=== PATIENT | male | born 1980 | race Hispanic/Latino ===

== ENCOUNTER 2019-03-09 19:39 | Emergency (ER) | payer SELFPAY ==
[2019-03-09] MEDS ORDERED: Adacel (T-DAP) 0.5 ML SYRINGE ONE (20:29)
[2019-03-09] MEDS ORDERED: Lidocaine 1% (PF) 30 ML VIAL ONE (21:02)
[2019-03-09] MEDS ORDERED: Lidocaine 1% PF 5 ML VIAL ONE (21:03)
[2019-03-09] MEDS ORDERED: Bacitracin 1 PK ONE (21:29)
== END 2019-03-09 21:35 | disposition home or self-care (01) ==
LOC: ERS 19:39
DX: S71.112A Laceration without foreign body, left thigh, initial encounter (principal); E03.9 Hypothyroidism, unspecified; F32.9 Major depressive disorder, single episode, unspecified; Z79.899 Other long term (current) drug therapy; W26.0XXA Contact with knife, initial encounter
CPT/HCPCS: 12001; 90471; 90715; J2001

== ENCOUNTER 2019-03-23 11:19 | Emergency (ER) | payer OTHER | END 2019-03-23 12:03 | disposition home or self-care (01) | LOC: ERS 11:19 | DX: S71.112D Laceration without foreign body, left thigh, subsequent encounter (principal); E03.9 Hypothyroidism, unspecified; F32.9 Major depressive disorder, single episode, unspecified; Z79.899 Other long term (current) drug therapy ==

== ENCOUNTER 2020-11-24 21:20 | Emergency (ER) | payer OTHER ==
[~2020-11-24 21:20] MED LIST: Iopamidol-370 76% 500 ML 1 ML ONE
[2020-11-24 21:55] LABS: #Eosinphils 0.3 thou/uL (0.0-0.7); #Lymphocytes 1.8 thou/uL (1.20-3.40); #Monocytes 0.7 thou/uL (0.11-0.59); #Neutrophils 7.6 thou/uL (1.40-6.50); %Basophils 0.2 % (0.0-1.0); %Eosinophils 2.5 % (0.0-10.0); %Lymphocytes 17.6 % (21.0-51.0); %Monocytes 6.3 % (0.0-10.0); %Neutrophils 73.3 % (42.0-75.0); Hemoglobin 15.1 g/dL (14.0-18.0); Mean Corpuscular HGB CONC 33.5 g/dL (32.0-36.0); Mean Corpuscular Hemoglobin 31.6 pg (27.0-31.0); Mean Corpuscular Volume 94.1 fL (78.0-98.0); Mean Platelet Volume 11.9 fL (7.4-10.4); Platelet Count 156 thou/uL (130-400); RBC Distribution Width 12.3 % (11.5-14.5); Red Blood Cell (RBC) Count 4.79 mill/uL (4.70-6.10); White Blood Cell (WBC) Count 10.4 thou/uL (4.8-10.8)
[2020-11-24 22:07] LABS: ALT (SGPT) 45 U/L (8-55); AST (SGOT) 44 U/L (5-34); Albumin 4.1 g/dL (3.5-5.0); Alkaline Phosphatase 80 U/L (40-110); Anion Gap 13 mmol/L (10-20); BUN (Urea Nitrogen) 11 mg/dL (8.9-20.6); Bilirubin, Total 0.6 mg/dL (0.2-1.2); Calc. Creatinine Clearance 0 mL/min (70-130); Calcium 9.4 mg/dL (7.8-10.44); Carbon Dioxide 25 mmol/L (22-29); Chloride 104 mmol/L (98-107); Globulin 3.3 g/dL (2.4-3.5); Glucose 100 mg/dL (70-105); Lipase 24 U/L (8-78); Potassium 3.8 mmol/L (3.5-5.1); Protein, Total 7.4 g/dL (6.0-8.3); Sodium 138 mmol/L (136-145)
[2020-11-24 22:08] LABS: Alcohol Less than 10 mg/dL (Less than 10); Salicylate Less than 8.0 mg/dL (15.0-30.0)
[2020-11-24] MEDS ORDERED: Fentanyl 100 MCG/2 ML VIAL ONE (22:13)
== END 2020-11-24 22:55 | disposition home or self-care (01) ==
LOC: ERS 21:20
DX: S20.211A Contusion of right front wall of thorax, initial encounter (principal); S80.12XA Contusion of left lower leg, initial encounter; S80.11XA Contusion of right lower leg, initial encounter; E03.9 Hypothyroidism, unspecified; X58.XXXA Exposure to other specified factors, initial encounter
CPT/HCPCS: 36415; 70450; 71045; 71260; 72125; 74177; 80053; 80307; 83690; 84484; 85025; 86850; 86900; 86901; 96374; J3010; Q9967

== ENCOUNTER 2022-03-13 23:27 | Emergency (ER) | payer OTHER ==
[2022-03-13] MEDS ORDERED: Morphine 4 MG/ML VIAL ONE (23:52)
[2022-03-14 00:32] LABS: Hemoglobin 15.2 g/dL (14.0-18.0); Mean Corpuscular HGB CONC 32.6 g/dL (32.0-36.0); Mean Corpuscular Volume 98.3 fL (78.0-98.0); RBC Distribution Width 12.9 % (11.5-14.5); Red Blood Cell (RBC) Count 4.76 mill/uL (4.70-6.10); White Blood Cell (WBC) Count 8.6 thou/uL (4.8-10.8)
[2022-03-14 00:46] LABS: ALT (SGPT) 30 U/L (8-55); AST (SGOT) 41 U/L (5-34); Albumin 3.7 g/dL (3.5-5.0); Alkaline Phosphatase 55 U/L (40-110); Anion Gap 14 mmol/L (10-20); BUN (Urea Nitrogen) 11 mg/dL (8.9-20.6); Bilirubin, Total 0.5 mg/dL (0.2-1.2); Calc. Creatinine Clearance 0 mL/min (70-130); Calcium 8.9 mg/dL (7.8-10.44); Carbon Dioxide 24 mmol/L (22-29); Chloride 107 mmol/L (98-107); Estimated GFR 105; Globulin 2.7 g/dL (2.4-3.5); Glucose 92 mg/dL (70-105); Potassium 3.9 mmol/L (3.5-5.1); Protein, Total 6.4 g/dL (6.0-8.3); Sodium 141 mmol/L (136-145)
[2022-03-14 01:09] LABS: #Basophils 0.1 thou/uL (0.0-0.2); #Eosinphils 0.4 thou/uL (0.0-0.7); #Lymphocytes 2.7 thou/uL (1.20-3.40); #Monocytes 0.6 thou/uL (0.11-0.59); #Neutrophils 4.9 thou/uL (1.40-6.50); %Basophils 0.6 % (0.0-1.0); %Eosinophils 4.7 % (0.0-10.0); %Lymphocytes 31.2 % (21.0-51.0); %Monocytes 7.3 % (0.0-10.0); %Neutrophils 56.3 % (42.0-75.0); Large Platelets SLIGHT; MDiff Complete? YES; Platelet Count 126 thou/uL (130-400); Platelet Morphology Comment Appears Adequate
== END 2022-03-14 01:55 | disposition home or self-care (01) ==
LOC: ERS 23:27
DX: M54.2 Cervicalgia (principal); M25.552 Pain in left hip; E03.9 Hypothyroidism, unspecified; F17.210 Nicotine dependence, cigarettes, uncomplicated; V43.52XA Car driver injured in collision with other type car in traffic accident, initial encounter; W22.11XA Striking against or struck by driver side automobile airbag, initial encounter
CPT/HCPCS: 36415; 71045; 72125; 80053; 85025; 96374; J2270